=== PATIENT | female | born 1960 | race Caucasian/White ===

== ENCOUNTER 2019-02-04 13:31 | Emergency (ER) | payer OTHER ==
[~2019-02-04] VITALS: Ht 170.2 cm; Wt 47.6 kg
[2019-02-04] MEDS ORDERED: PERCOCET 10-321 EACH PO (14:23)
[2019-02-04] MEDS ORDERED: MEDROLDOSEPACK PO (15:00)
[2019-02-04] MEDS ORDERED: PERCOCET 5-3251 EACH PO (15:00)
[2019-02-04 15:11] VITALS: BP 106/48
== END 2019-02-04 15:20 | disposition home or self-care (01) ==
LOC: ER 13:31
DX: M54.41 Lumbago with sciatica, right side (principal); M54.42 Lumbago with sciatica, left side